=== PATIENT | female | born 2000 | race Caucasian/White ===

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

== ENCOUNTER 2018-04-28 19:25 | Inpatient (IN) | payer OTHER ==
[~2018-04-28] VITALS: Ht 162.6 cm; Wt 53.5 kg
[~2018-04-28 19:25] MED LIST: DIALYVITE 8000.8 M1; PEPCID40 MG
[2018-05-02] MEDS ORDERED: CODE1TAB37 PO (08:44)
== END 2018-05-02 16:55 | disposition home or self-care (01) | DRG 766 ==
LOC: OBS/DEL 19:25 → OB/GYN 04-29 04:12 → LDR 04-29 04:12 → OB/GYN 04-29 15:40
PROVIDERS: Obstetrics & Gynecology
PROC: 10907ZC Drainage of Amniotic Fluid, Therapeutic from Products of Conception, Via Natural or Artificial Opening (ICD-10-PCS; 2018-04-29)
PROC: 4A1HXCZ Monitoring of Products of Conception, Cardiac Rate, External Approach (ICD-10-PCS; 2018-04-29)
PROC: 10D00Z1 Extraction of Products of Conception, Low, Open Approach (ICD-10-PCS; principal; 2018-04-29 12:00)
DX: O62.1 Secondary uterine inertia (principal); O69.81X0 Labor and delivery complicated by cord around neck, without compression, not applicable or unspecified; Z3A.37 37 weeks gestation of pregnancy; Z37.0 Single live birth